=== PATIENT | male | born 1980 | race Caucasian/White ===

== ENCOUNTER 2018-06-30 08:37 | Inpatient (IN) | payer MEDICAID ==
[~2018-06-30] VITALS: Ht 185.4 cm; Wt 78.1 kg
[2018-06-30] MEDS ORDERED: tuberculin, purif. prot. deriv. 5 units/0.1ml ID ONE (10:10)
[2018-06-30] MEDS ORDERED: magnesium hydroxide 30ml (MOM) UD suspension PO PRN (10:10)
[2018-06-30] MEDS ORDERED: acetaminophen 325mg tablet PO PRN (10:10)
--- NOTE | 2018-06-30 10:25 | NUR ---
Nursing Admit note Patient transported from [facility] by [facility], arrived on the unit at 0905. Patient items inventoried and patient oriented to unit. Original 5150 for DTS, suicidal thoughts with a plan to jump in front of traffic. Patient appears clean, dressed appropriately, and calm.
[2018-06-30 10:47] VITALS: BP 135/89
[2018-06-30] MEDS ORDERED: cloNIDine 0.1 mg tablet PO ONE (18:15)
[2018-06-30] MEDS ORDERED: METH-603 PO (19:28)
[2018-06-30 20:00] VITALS: BP 115/82
[2018-06-30] MEDS: LORazepam 1 MG tablet PO PRN (21:29)
--- NOTE | 2018-06-30 23:12 | NUR ---
RN Progress Note Chief Complaint: Depression and anxiety Legal hold: 5150 Client on voluntary/involuntary status for: DTS Report received from: JESSICA Rizzo with use of SBAR Why are they here: Pt experiencing worsening anxiety and depression that led to S/I with thoughts of wanting to step in front of traffic, stating "it seems like that could be a good ending". Assessment What has happened this shift: Pt up in the group room at change of shift. Reports that he is feeling anxious and requests first dose of clonidine. Educated patient on clonidine and given a medication handout, administered medication. Pt reported no anxiolytic benefit from the clonidine and requested a dose of lorazepam. Pt then watched tv with other patients for awhile, then went to bed. S/I, H/I: denies current S/I, but has intermittent thoughts that accompany overwhelming anxiety and a feeling of doom A/VH: denies Sleep: first night here; no reported issues ADL's: independent, showered today Group attendance: no groups this evening Were meds taken: yes Any med S/E: denies Mental Status Exam Appearance: well groomed, dressed appropriately Eye contact: direct Behavior: appropriate, calm, cooperative, no psychomotor abnormalities Speech: clear, normal rate and rhythm Mood: depressed, anxious Affect: appropriate, normal range Thought process: goal directed Thought Content: focused on treating anxiety Cognition: A&Ox4 Insight: good Judgment: good Interventions PRN's used: lorazepam Therapeutic interventions: 1:1 assessment, provide safe, supportive environment, medication education, q 15 minute checks for safety. Restraints/seclusion/emergency medication: None Justification: Pt remains at risk for DTS at this time
[2018-07-01] MEDS: acetaminophen 325mg tablet PO PRN (06:54)
[2018-07-01 07:41] VITALS: BP 123/83
[2018-07-01] MEDS: methadone 10mg tablet PO SCH (08:11)
[2018-07-01] MEDS: cloNIDine 0.1 mg tablet PO SCH ×2 (08:12→17:36)
[2018-07-01] MEDS: ibuprofen 200mg tablet PO SCH ×3 (08:12→20:45)
[2018-07-01 08:36] LABS: HEMOGLOBIN A1C 5.3 % (4.5-6.2)
[2018-07-01 08:45] LABS: CHOL/HDL RATIO 3.2 (0.00-4.99); CHOLESTEROL 165 MG/DL (0-200); HDL CHOLESTEROL 52 MG/DL (35-60); LDL CHOLESTEROL 95 MG/DL (50-100); TRIGLYCERIDES 127 MG/DL (20-135)
[2018-07-01] MEDS: LORazepam 1 MG tablet PO PRN ×2 (11:12→17:38)
--- NOTE | 2018-07-01 16:24 | NUR ---
RN Progress Note Chief Complaint: Depression and anxiety Legal hold: 5150 Client on voluntary/involuntary status for: DTS Report received from: JESSICA Paniagua with use of SBAR Why are they here: Pt experiencing worsening anxiety and depression that led to S/I with thoughts of wanting to step in front of traffic, stating "it seems like that could be a good ending". DX: JEAN CLAUDE.[id number] SI F41.0 Panic disorder without agoraphobia F32.9 Depression NOS (first episode) Assessment What has happened this shift: Patient is met first thing in the morning c/o a migraine. He requests medication. PRN tylenol administered. Prior to breakfast, medications administered. Patient states that he had his first dose of clonidine (for anxiety) last night and received education about it. He asks if he can have ativan this morning reporting anxiety. RN encouraged patient to wait and see how he feels in about an hour since he just took his medication. Provided education r/t ativan. Encouraged pt to let this nurse know if still feeling anxious. After about an hour patient is observed walking the halls a few times. When asked how he is feeling he states that he is fine and that his will be here to visit at 10:00. He states that he is going to go lay down until she gets here. Patient had visit from his and after requested ativan. When asked if the visit was hard patient stated Not at all, it was really good. Theres just so many people here I feel like Im under a microscope and Im sick of it. Can I just have my ativan, Im gonna go lay down now? Ativan administered as prescribed then patient requested to make a phone call and after returned to his room. Prior to lunch patient is observed socializing with others and playing board games. Later in the afternoon patient watches movies with others. He discusses what happened when his was visiting earlier. He states he feels he may have PTSD and got anxious when someone switched chairs at the table as in long-term this indicates something is about to happen. Signs of improvement are discussed with patient such as, recognition, lower BP and HR and that even though he was anxious he did not have a panic attack. Patient is provided positive feedback and feels good about his progress. He states that he hopes to learn tools that he can use when he is no longer here as it upsets him to become anxious when he is spending time with his . S/I, H/I: denies current S/I A/VH: denies Sleep: awoke with migraine, napped during the day ADL's: independent Group attendance: no groups today Were meds taken: yes Any med S/E: denies Mental Status Exam Appearance: well groomed, dressed appropriately Eye contact: direct Behavior: cooperative, friendly, anxious at times Speech: clear, normal rate and rhythm Mood: depressed, anxious Affect: appropriate, normal range Thought process: goal directed Thought Content: focused on treating anxiety Cognition: A&Ox4 Insight: good Judgment: good Interventions PRN's used: tylenol, lorazepam Therapeutic interventions: 1:1 assessment, communication with RN that included active listening with positive feedback, maintained a safe and therapeutic environment, provided medication education, and maintained Q 15 min safety checks. Restraints/seclusion/emergency medication: None Justification: Pt remains at risk for DTS at this time. Continued therapeutic and medication management needed to provide stabilization, prevent decompensation, decreasing risk to patient and readmittance.
[2018-07-01] MEDS: famotidine 20mg tablet PO SCH (17:36)
[2018-07-01] MEDS: NICOTINE POLACRILEX 4 MG LOZENGE BC PRN (18:58)
[2018-07-01 20:00] VITALS: BP 118/82
--- NOTE | 2018-07-02 02:57 | NUR ---
RN Progress Note Chief Complaint: Depression and anxiety Legal hold: 5150 Client on voluntary/involuntary status for: DTS Report received from: JESSICA Paniagua with use of SBAR Why are they here: Pt experiencing worsening anxiety and depression that led to S/I with thoughts of wanting to step in front of traffic, stating "it seems like that could be a good ending". DX: SI Panic disorder Depression NOS (first episode) Assessment What has happened this shift: Pt up in halls at start of shift. Affect bright. Denies depression a or SI. Pt states his main problem is panic attacks. He says he has always suffered from anxiety but recently his panic attacks have become so severe that at one point he went to the ER thinking it was a heart attack. The ER ruled out a WI. Pt went home but continued to experience severe anxiety to the point he felt it was not worth living and became suicidal. Pt states the medications here are helping. He said he is grateful to be here because Dr. Echavarria told him he would adjust his medications till he finds something that works. Pt here to visit. Pt interacts pleasantly with staff and other pts. S/I, H/I: denies current S/I A/VH: denies Sleep: sleeping at this time ADL's: independent Group attendance: no groups today Were meds taken: yes Any med S/E: denies Mental Status Exam Appearance: well groomed, dressed appropriately Eye contact: direct Behavior: cooperative, friendly, anxious at times Speech: clear, normal rate and rhythm Mood: depressed, anxious Affect: appropriate, normal range Thought process: goal directed Thought Content: focused on treating anxiety Cognition: A&Ox4 Insight: good Judgment: good Interventions Therapeutic interventions: 1:1 assessment, communication with RN that included active listening with positive feedback, maintained a safe and therapeutic environment, provided medication education, and maintained Q 15 min safety checks. PRN's used: Nicotine lozenge Therapeutic interventions: 1:1 assessment, communication with RN that included active listening with positive feedback, maintained a safe and therapeutic environment, provided medication education, and maintained Q 15 min safety checks. Restraints/seclusion/emergency medication: None Justification: Pt remains at risk for DTS at this time. Continued therapeutic and medication management needed to provide stabilization, prevent decompensation, decreasing risk to patient and readmittance.
[2018-07-02] MEDS: cloNIDine 0.1 mg tablet PO SCH ×2 (07:50→17:51)
[2018-07-02] MEDS: ibuprofen 200mg tablet PO SCH ×3 (07:50→21:00)
[2018-07-02] MEDS: methadone 10mg tablet PO SCH (07:50)
[2018-07-02 08:00] VITALS: BP 110/71
[2018-07-02] MEDS: LORazepam 1 MG tablet PO PRN ×2 (09:41→18:49)
--- NOTE | 2018-07-02 17:31 | NUR ---
RN Progress Note Chief Complaint: Depression and anxiety Legal hold: 5150 Client on voluntary/involuntary status for: DTS Report received from: JESSICA Freeman with use of SBAR Why are they here: Pt experiencing worsening anxiety and depression that led to S/I with thoughts of wanting to step in front of traffic, stating "it seems like that could be a good ending". DX: SI Panic disorder Depression NOS (first episode) Assessment What has happened this shift: Patient is awoken at change of shift. He states that he slept well the night before. He takes his medications without issue. Medication education provided. Thirty minutes prior to visitation time patient requests ativan for anxiety. He asks if he can have it ten minutes. RN obliged and administered as prescribed. Patient is observed smiling and dancing with his down the jones. During conversation later, patient asks if he will be prescribed the same medication that he is taking here as he feels that it is working. RN provided medication education r/t effects of ativan. Patient verbalizes understanding. Patient denies feeling suicidal and even though he has felt anxious he has not had a panic attack while here. S/I, H/I: denies current S/I A/VH: denies Sleep: slept well at night ADL's: independent Group attendance: yes Were meds taken: yes Any med S/E: denies Mental Status Exam Appearance: well groomed, dressed appropriately Eye contact: direct Behavior: cooperative, friendly, anxious at times Speech: clear, normal rate and rhythm Mood: anxious Affect: appropriate, normal range Thought process: goal directed Thought Content: getting well, staying well, future oriented Cognition: A&Ox4 Insight: good Judgment: good Interventions Therapeutic interventions: 1:1 assessment, communication with RN that included active listening with positive feedback, maintained a safe and therapeutic environment, provided medication education, and maintained Q 15 min safety checks. PRN's used: Nicotine lozenge Therapeutic interventions: 1:1 assessment, communication with RN that included active listening with positive feedback, maintained a safe and therapeutic environment, provided medication education, and maintained Q 15 min safety checks. Restraints/seclusion/emergency medication: None Justification: Pt remains at risk for DTS at this time. Continued therapeutic and medication management needed to provide stabilization, prevent decompensation, decreasing risk to patient and readmittance.
[2018-07-02] MEDS: famotidine 20mg tablet PO SCH (17:51)
[2018-07-02 20:00] VITALS: BP 127/77
[2018-07-02] MEDS: mag hydrox/Alum hydrox/simeth 30ml oral suspension PO PRN (20:47)
[2018-07-02] MEDS: NICOTINE POLACRILEX 4 MG LOZENGE BC PRN (20:47)
[2018-07-02] MEDS: cloNIDine 0.1 mg tablet PO PRN (20:49)
--- NOTE | 2018-07-03 02:23 | NUR ---
RN Progress Note Chief Complaint: Depression and anxiety Legal hold: 5150 Client on voluntary/involuntary status for: DTS Report received from: JESSICA Paniagua with use of SBAR Why are they here: Pt experiencing worsening anxiety and depression that led to S/I with thoughts of wanting to step in front of traffic, stating "it seems like that could be a good ending". DX: SI Panic disorder Depression NOS (first episode) Assessment What has happened this shift: Pt in group room at start of shift. Requested and given Ativan. Denies depression a or SI. Pt here to visit. Pt had a pleasant visit. Pt gets up and paces leaving his alone at times. said pt has trouble sitting still. Pt interacts pleasantly with staff and other pts. Denies depression or SI. S/I, H/I: denies current S/I A/VH: denies Sleep: sleeping at this time ADL's: independent Group attendance: no groups today Were meds taken: yes Any med S/E: denies Mental Status Exam Appearance: well groomed, dressed appropriately Eye contact: direct Behavior: cooperative, friendly, anxious at times Speech: clear, normal rate and rhythm Mood: depressed, anxious Affect: appropriate, normal range Thought process: goal directed Thought Content: focused on treating anxiety Cognition: A&Ox4 Insight: good Judgment: good Interventions Therapeutic interventions: 1:1 assessment, communication with RN that included active listening with positive feedback, maintained a safe and therapeutic environment, provided medication education, and maintained Q 15 min safety checks. PRN's used: Nicotine lozenge Therapeutic interventions: 1:1 assessment, communication with RN that included active listening with positive feedback, maintained a safe and therapeutic environment, provided medication education, and maintained Q 15 min safety checks. Restraints/seclusion/emergency medication: None Justification: Pt remains at risk for DTS at this time. Continued therapeutic and medication management needed to provide stabilization, prevent decompensation, decreasing risk to patient and readmittance.
[2018-07-03 08:00] VITALS: BP 118/78
[2018-07-03] MEDS: LORazepam 1 MG tablet PO PRN ×2 (09:04→19:59)
[2018-07-03] MEDS: methadone 10mg tablet PO SCH (09:05)
[2018-07-03] MEDS: cloNIDine 0.1 mg tablet PO SCH ×2 (09:05→17:21)
[2018-07-03] MEDS: ibuprofen 200mg tablet PO SCH ×3 (09:06→20:09)
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
--- NOTE | 2018-07-03 16:11 | NUR ---
1:1 DISCHARGE PLANNING FERNY contacted [facility] at [phone], to schedule therapy appointment aftercare. Pt is scheduled to attend psychotherapy with Bishop Glover on 07/11/2018 at 13:00. FERNY contacted [facility] for psychiatric care at [phone]. Pt scheduled for psychiatric on 07/13/2018 at 8:30a. STEPHANIE Roldan
[2018-07-03] MEDS: cloNIDine 0.1 mg tablet PO PRN (16:17)
[2018-07-03] MEDS: famotidine 20mg tablet PO SCH (17:21)
--- NOTE | 2018-07-03 18:12 | NUR ---
RN Progress Note Went through several severe mood changes throughout the day. After 2 PM group presented to staff as confrontational. Asked for Ativan. Told staff would get him Ativan. Stated "I know you don't want to give me Ativan. What about if I need it? Who are you to decide if I need Ativan or not? Patient informed Ativan was ordered for him and would be given to him as ordered. 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 Patient then got up and walked away. Came back within a few minutes and asked for a prn Clonidine instead. Given Clonidine as ordered. Patient stated "I decided to see if the Clonidine would help me without needing the Ativan. Patient then observed to be in the rec room, talking loudly and rapidly to another patient, resembling manic behavior. Mood fluctuated throughout the day. Patient presents as unaware of mood instability. Condition guarded at this time
[2018-07-03] MEDS: acetaminophen 325mg tablet PO PRN (19:59)
[2018-07-03 20:12] VITALS: BP 105/54
--- NOTE | 2018-07-03 23:23 | NUR ---
Nursing progress note: The patient has been up on the unit after meeting with the PA. He presents as friendly and pleasant on approach for the evening assessment. He appears well groomed and appropriately dressed. He did ask for PRN Ativan for anxiety that was moderately high. He stated that he felt his anxiety was triggered by his own internal thoughts. He stated that in the past he has used exercises and breathing exercises to help control his anxiety. He stated that lately he has been suffering from panic attacks that have been very uncomfortable for him and he fears having more of them. He did state that here on the unit he slept well last night and that his mood was "OK" but he did note that there were times during the day that his mood fluctuated. He also reports racing thoughts at times. He denies active or passive suicidal thinking. He stated his goal in treatment was to get stabilized on medications.
[2018-07-04 08:00] VITALS: BP 115/81
[2018-07-04] MEDS: LORazepam 1 MG tablet PO PRN (08:26)
[2018-07-04] MEDS: busPIRone 5mg tablet PO SCH ×2 (08:26→13:15)
[2018-07-04] MEDS: cloNIDine 0.1 mg tablet PO SCH (08:26)
[2018-07-04] MEDS: ibuprofen 200mg tablet PO SCH ×2 (08:27→13:16)
[2018-07-04] MEDS: methadone 10mg tablet PO SCH (08:27)
[2018-07-04] MEDS: mag hydrox/Alum hydrox/simeth 30ml oral suspension PO PRN (14:08)
[2018-07-04] MEDS ORDERED: FAMO20TA8 PO (15:00)
[2018-07-04] MEDS ORDERED: ATI1T PO (15:00)
[2018-07-04] MEDS ORDERED: NICO-503 BC (15:00)
[2018-07-04] MEDS ORDERED: CLON0.1T20 PO (15:00)
[2018-07-04] MEDS ORDERED: IBUP-2264 PO (15:00)
[2018-07-04] MEDS ORDERED: BUS15T PO (15:00)
--- NOTE | 2018-07-04 15:30 | NUR ---
Discharge Note Patient discharged to home, with all his personal belongings as per inventory sheet. Accompanied to lobby via ambulatory by Rj BROOKS. Seen by Dr. Echavarria shortly before discharge and aftercare plan discussed and accepted by patient. All discharge paperwork reviewed with patient and signed. All questions answered. Patient has an understanding of his medications and how to take them at home. Dr. Echavarria called patient's medications into [facility]. Patient is aware of this. Patient denies suicidal ideation or intent. States "I know I've got more work to do but I'm ready to get started." Refused offer of nicotine replacement products because he is not a smoker.
== END 2018-07-04 15:30 | disposition home or self-care (01) | DRG 755 ==
LOC: EEVIPCON → ADULT MH 09:26
PROVIDERS: ADMIT Psychiatry & Neurology Psychiatry; ATTEND Psychiatry & Neurology Psychiatry
DX: F40.01 Agoraphobia with panic disorder (principal); R45.851 Suicidal ideations; F17.210 Nicotine dependence, cigarettes, uncomplicated; F32.9 Major depressive disorder, single episode, unspecified; G89.4 Chronic pain syndrome; F41.1 Generalized anxiety disorder; K21.9 Gastro-esophageal reflux disease without esophagitis; F43.10 Post-traumatic stress disorder, unspecified; F63.81 Intermittent explosive disorder; F90.9 Attention-deficit hyperactivity disorder, unspecified type; I10 Essential (primary) hypertension; M54.9 Dorsalgia, unspecified; Z80.6 Family history of leukemia; Z91.410 Personal history of adult physical and sexual abuse; Z91.411 Personal history of adult psychological abuse; Z79.899 Other long term (current) drug therapy
CPT/HCPCS: 36415; 80061; 83036; 83835; 84443; 87070